=== PATIENT | female | born 1980 | race American Indian/Alaskan Native ===

== ENCOUNTER 2016-07-07 10:28 | Emergency (ER) | payer OTHER ==
[2016-07-07 10:47] VITALS: BP 141/82
[2016-07-07] MEDS ORDERED: FLEXERIL PO ONE (12:05)
[2016-07-07] MEDS ORDERED: TORADOL IM ONE (12:05)
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
== END 2016-07-07 12:40 | disposition home or self-care (01) ==
LOC: ED 10:28
DX: S39.012A Strain of muscle, fascia and tendon of lower back, initial encounter (principal); Y04.0XXA Assault by unarmed brawl or fight, initial encounter; Y93.9 Activity, unspecified; Y92.9 Unspecified place or not applicable; Y99.9 Unspecified external cause status
CPT/HCPCS: 96372; 99282; J1885